=== PATIENT | male | born 1990 | race Caucasian/White ===

== ENCOUNTER 2021-03-02 13:44 | Emergency (ER) | payer OTHER ==
[~2021-03-02] VITALS: Ht 180.3 cm; Wt 70.3 kg
[2021-03-02] MEDS ORDERED: NOHOMEMEDICATIONS (13:51)
[2021-03-02 14:36] VITALS: BP 132/85
== END 2021-03-02 14:37 | disposition home or self-care (01) ==
LOC: M.ERS 13:44
DX: U07.1 COVID-19 (principal); Z90.89 Acquired absence of other organs; Z88.8 Allergy status to other drugs, medicaments and biological substances

== ENCOUNTER 2021-03-13 05:54 | Emergency (ER) | payer OTHER ==
[~2021-03-13] VITALS: Ht 180.3 cm; Wt 68.0 kg
[~2021-03-13 05:54] MED LIST: NOHOMEMEDICATIONS
[2021-03-13 06:58] LABS: ABSOLUTE BASOPHILS 0.1 thou/uL (0.0-0.2); ABSOLUTE EOSINOPHILS 0.1 thou/uL (0.0-0.7); ABSOLUTE MONOCYTES 0.5 thou/uL (0.0-1.2); ABSOLUTE NEUTROPHILS 3.5 thou/uL (1.6-8.1); BASOPHILS 1.5 %; EOSINOPHILS 1.6 %; HEMOGLOBIN 14.6 gm/dL (14.0-18.0); LYMPHOCYTES 32.8 %; MCH 29.4 pg (26.0-34.0); MCHC 33.9 g/dL (28.0-37.0); MCV 86.7 fL (80.0-100.0); MONOCYTES 7.5 %; MPV 8.1 fl. (7.2-11.1); NUCLEATED RBCS 0 /100WBC; PLATELET COUNT* 222 thou/uL (150-400); POLYS 56.6 %; RBC 4.96 mil/uL (4.50-6.00); RDW-CV 13.2 % (10.5-14.5); WBC 6.1 thou/uL (4.0-11.0)
[2021-03-13 07:12] LABS: CALCIUM 9.3 mg/dL (8.5-10.1); CREATININE 0.9 mg/dL (0.6-1.3)
[2021-03-13 07:26] LABS: PROTIME 11.1 Seconds (9.20-11.50)
[2021-03-13 08:55] VITALS: BP 101/56
== END 2021-03-13 08:55 | disposition home or self-care (01) ==
LOC: M.ERS 05:54
PROVIDERS: Emergency Medicine
DX: R51.9 Headache, unspecified (principal); Z90.49 Acquired absence of other specified parts of digestive tract; Z88.8 Allergy status to other drugs, medicaments and biological substances